=== PATIENT | male | born 1955 | race Hispanic/Latino ===

== ENCOUNTER 2018-12-14 22:43 | Emergency (ER) | payer MEDICAID, OTHER ==
[~2018-12-14 22:43] MED LIST: IRON SUPPLEMENT
== END 2018-12-14 23:26 | disposition home or self-care (01) ==
LOC: EDH 22:43
DX: T83.098A Other mechanical complication of other urinary catheter, initial encounter (principal); Y84.8 Other medical procedures as the cause of abnormal reaction of the patient, or of later complication, without mention of misadventure at the time of the procedure; Y92.89 Other specified places as the place of occurrence of the external cause
CPT/HCPCS: 51702

== ENCOUNTER 2019-03-23 15:05 | Emergency (ER) | payer SELFPAY ==
[2019-03-23 15:49] LABS: BASOPHILS % (AUTO) 0.8 % (0.0-5.0); EOSINOPHILS % (AUTO) 3.1 % (0.0-8.0); LYMPHOCYTES % (AUTO) 35.3 % (21.0-51.0); MEAN CORPUSCULAR HEMOGLOBIN 31.6 pg (27.0-33.0); MEAN CORPUSCULAR HGB CONC 34.8 g/dL (32.0-36.0); MEAN CORPUSCULAR VOLUME 90.6 fL (79-99); MONOCYTES % (AUTO) 7.1 % (3.0-13.0); NEUTROPHILS % (AUTO) 53.7 % (40.0-77.0); NUCLEATED RED BLOOD CELLS 0.1 % (0.0-0.19); PLATELET COUNT (AUTO) 177 K/uL (130-400); RED BLOOD CELL COUNT(AUTO) 4.52 MIL/uL (4.50-6.20); RED CELL DISTRIBUTION WIDTH 13.5 % (11.0-15.5); WHITE BLOOD COUNT (AUTO) 6.3 K/uL (4.8-10.8)
[2019-03-23 15:58] LABS: POTASSIUM 3.9 mmol/L (3.5-5.1)
[2019-03-23 16:01] LABS: APPEARANCE,URINE Clear (CLEAR); BILIRUBIN,URINE Negative (NEGATIVE); COLOR,URINE Yellow (YELLOW); GLUCOSE, URINE (UA) Negative (NEGATIVE); KETONES,URINE Negative (NEGATIVE); LEUKOCYTE ESTERASE ,URINE Moderate (NEGATIVE); NITRATE,URINE Negative (NEGATIVE); OCCULT BLOOD,URINE Moderate (NEGATIVE); PH,URINE 6.5 (5.0-8.0); PROTEIN,URINE Negative (NEGATIVE)
[2019-03-23 16:02] LABS: ALBUMIN 4.4 g/dL (3.5-5.0); BILIRUBIN,TOTAL 0.4 mg/dL (0.2-1.0); TOTAL PROTEIN, SERUM 7.8 g/dL (6.0-8.3)
[2019-03-23 16:07] LABS: INR 0.96 (0.85-1.15); PROTHROMBIN TIME 9.9 SEC (9.6-11.6)
[2019-03-23 16:42] LABS: BACTERIA,URINE Few /HPF (None Seen); MUCUS,URINE None Seen LPF (None Seen); SQUAMOUS EPITHELIAL CELL,UR 0-2 /HPF (0-2)
== END 2019-03-23 21:35 | disposition home or self-care (01) ==
LOC: EDH 15:05
DX: R31.9 Hematuria, unspecified (principal); C61 Malignant neoplasm of prostate
CPT/HCPCS: 36415; 51702; 80053; 81001; 85025; 85610; 85730

== ENCOUNTER 2019-03-24 20:44 | Emergency (ER) | payer SELFPAY ==
[2019-03-25] MEDS ORDERED: LEVO500T89 PO (23:04)
[2019-03-25] MEDS ORDERED: BICA50TA7 PO (23:04)
== END 2019-03-24 22:38 | disposition home or self-care (01) ==
LOC: EDH 20:44
DX: T83.098A Other mechanical complication of other urinary catheter, initial encounter (principal); R31.9 Hematuria, unspecified; N32.0 Bladder-neck obstruction; Y84.8 Other medical procedures as the cause of abnormal reaction of the patient, or of later complication, without mention of misadventure at the time of the procedure; Y92.89 Other specified places as the place of occurrence of the external cause
CPT/HCPCS: 99281

== ENCOUNTER 2019-03-25 16:36 | Inpatient (IN) | payer SELFPAY ==
[~2019-03-25] VITALS: Ht 165.1 cm; Wt 86.0 kg
[2019-03-25 18:35] LABS: BASOPHILS % (AUTO) 1.2 % (0.0-5.0); EOSINOPHILS % (AUTO) 3.5 % (0.0-8.0); HEMATOCRIT 36.8 % (42-54); LYMPHOCYTES % (AUTO) 24.5 % (21.0-51.0); MEAN CORPUSCULAR HEMOGLOBIN 32.5 pg (27.0-33.0); MEAN CORPUSCULAR HGB CONC 35.5 g/dL (32.0-36.0); MEAN CORPUSCULAR VOLUME 91.7 fL (79-99); NEUTROPHILS % (AUTO) 63.8 % (40.0-77.0); NUCLEATED RED BLOOD CELLS 0.1 % (0.0-0.19); PLATELET COUNT (AUTO) 167 K/uL (130-400); RED BLOOD CELL COUNT(AUTO) 4.01 MIL/uL (4.50-6.20); RED CELL DISTRIBUTION WIDTH 13.8 % (11.0-15.5); WHITE BLOOD COUNT (AUTO) 6.4 K/uL (4.8-10.8)
[2019-03-25 18:40] LABS: APPEARANCE,URINE TURBID (CLEAR); BILIRUBIN,URINE SMALL (NEGATIVE); COLOR,URINE RED (YELLOW); GLUCOSE, URINE (UA) NEGATIVE (NEGATIVE); KETONES,URINE NEGATIVE (NEGATIVE); LEUKOCYTE ESTERASE ,URINE TRACE (NEGATIVE); NITRATE,URINE NEGATIVE (NEGATIVE); OCCULT BLOOD,URINE LARGE (NEGATIVE); PROTEIN,URINE 100 mg/dL (NEGATIVE)
[2019-03-25 18:42] LABS: PARTIAL THROMBOPLASTIN TIME 24.6 SEC (26.3-35.5); PROTHROMBIN TIME 10.5 SEC (9.6-11.6)
[2019-03-25 18:45] LABS: CREATININE 1.1 mg/dL (0.5-1.5); POTASSIUM 3.6 mmol/L (3.5-5.1)
[2019-03-25 18:48] LABS: BACTERIA,URINE Rare /HPF (None Seen); RBC,URINE TNTC /HPF (0-1)
[2019-03-25 18:49] LABS: SQUAMOUS EPITHELIAL CELL,UR None Seen /HPF (0-2)
[2019-03-25 18:50] LABS: BILIRUBIN,TOTAL 0.4 mg/dL (0.2-1.0); TOTAL PROTEIN, SERUM 7.4 g/dL (6.0-8.3)
[2019-03-25] MEDS ORDERED: CEFTRIAXONE SODIUM 1 GM ONE (19:05)
[2019-03-25] MEDS ORDERED: SODIUM CHLORIDE 0.9% 1000ML 1,000 ML IV ONE (19:05)
[2019-03-25] MEDS ORDERED: ONDANSETRON HCL 4 MG/2 ML VIAL IVP PRN (21:15)
[2019-03-25] MEDS ORDERED: MORPHINE SULFATE 2 MG/ML 1ML SYG IVP PRN (21:15)
[2019-03-25 22:35] VITALS: BP 142/82
[2019-03-25] MEDS ORDERED: LEVO500T89 PO (23:04)
[2019-03-25] MEDS ORDERED: BICA50TA7 PO (23:04)
[2019-03-25] MEDS: CEFTRIAXONE SODIUM 1 GM IVP SCH (23:51)
[2019-03-25] MEDS: SODIUM CHLORIDE 0.9% 1000ML 1,000 ML IV SCH (23:55)
[2019-03-26 04:00] VITALS: BP 133/80
[2019-03-26 08:00] VITALS: BP 137/79
--- NOTE | 2019-03-26 11:30 | NUR ---
INITIAL MET W PATIENT, BROTHER / SISTER IN LAW AT BEDSIDE,OCTAVIO SISTER ON FACE SHEET, EITHER ONE WILL PROVIDE TRANSPOR HOME FACE SHEET VERIFIED PT LIVES ALONE, IS INDPE OF ADLS, DOES NOT USE DME AND DRIVES, HAS HX OF METASTATIC CANCER TO SPINE, TREATED W ORAL CHEMO X 2 YEARS, BOWEL AND BLADDER INCONTINENCE, AGARWAL CATH X 2 YEARS W RECURRING UTIS, NOW W HEMATURIA, ASKE PT ABOUT MEDICARE STATS HE CANNOT APPLY BECAUSE HE GETS [facility]SI BENEFITS. WILL FOLLOW WITH [facility], MAY BE ABLE TO GET PT BENEFITS. WILL FOLLOW UP AND GIVE PT THE PKT FOR [facility] Addendum: 03/27/19 at 1914 by MEJIA MURPHY RN Amended: Links added.
[2019-03-26 11:46] VITALS: BP 137/77
[2019-03-26] MEDS: SODIUM CHLORIDE 0.9% 1000ML 1,000 ML IV SCH ×2 (12:29→16:33)
[2019-03-26 16:14] VITALS: BP 129/77
[2019-03-26 19:48] VITALS: BP 135/75
[2019-03-26 23:41] VITALS: BP 129/79
[2019-03-27] VITALS (26 sets, daily range): BP systolic 120–146; BP diastolic 62–86
[2019-03-27] MEDS: SODIUM CHLORIDE 0.9% 1000ML 1,000 ML IV SCH ×2 (05:10→20:30)
--- NOTE | 2019-03-27 07:45 | NUR ---
NOTE AAOX3. DENIES PAIN OR DISCOMFORT. CONTINUES WITH CBI OF NS. OUTPUT LOOKS VERY CLEAR YELLOWISH. CBI RATE WAS DECREASED A BIT LAST NIGHT AND THIS AM DOES NOT NEED TO BE INCREASED CONTINUES TO BE CLEAR ALL NIGHT AND NO REPORTS OF CLOTS OR BLOCKAGE OF FLOW. STILL PENDING DR PILLAI TO COME IN. HE WAS CALLED DAY BEFORE YESTERDAY IN ER AND GAVE ORDERS BUT DID NOT COME TO SEE PATIENT THEN OR YESTERDAY. WE CALLED OFFICE YESTERDAY IN THE AFTERNOON AND MATT FROM HER STAFF ANSWERED, TOLD US HE IS AWARE OF CONSULT BUT WAS VERY BUSY AND WOULD COME TO SEE PATIENT WHEN EVER HE COULD. WILL CALL OFFICE AGAIN.
--- NOTE | 2019-03-27 12:00 | NUR ---
NOTE DR PILLAI CAME AND SPOKE TO PATIENT. HE WILL PROCEED WITH CYSTOSCOPY LATER THIS AFTERNOON. WILL ENETR AN ORDER TO CONSULT INSPECTOR E[employer]GL[employer] FRAMES FOR HEALTHCARE ASSISTANCE ORDERED PER DR PILLAI.
--- NOTE | 2019-03-27 15:00 | NUR ---
CM TO FOLLOW UP ON BENENFITS WAS ASKED BY DR PILLAI VIA PRIMARY RN TODAY TO CHECK ON BENEFITS FOR PT HE WILL BE NEEDING MORE INTERVENTION I THE FUTURE . Addendum: 03/27/19 at 1921 by MEJIA MURPHY RN CM Amended: Links added.
--- NOTE | 2019-03-27 18:00 | NUR ---
NOTE HAS BEEN OUT OF ROOM FOR CYSTOSCOPY.
[2019-03-27] MEDS ORDERED: LIDOCAINE PF 2% 5ML ABBOJECT ONE (18:19)
[2019-03-27] MEDS ORDERED: MIDAZOLAM HCL 1 MG/ML 2ML VIAL ONE (18:19)
[2019-03-27] MEDS ORDERED: PROPOFOL 10 MG/ML 20ML VIAL IV ONE (18:20)
[2019-03-27] MEDS ORDERED: FENTANYL CITRATE PF 50 MCG/1 ML 2ML VIAL ONE (18:20)
[2019-03-27] MEDS ORDERED: CEFTRIAXONE SODIUM 1 GM IVP ONE (18:33)
[2019-03-27] MEDS ORDERED: ONDANSETRON HCL 4 MG/2 ML VIAL ONE (18:42)
[2019-03-27] MEDS: CEFTRIAXONE SODIUM 1 GM IVP SCH (20:21)
[2019-03-28] MEDS: SODIUM CHLORIDE 0.9% 1000ML 1,000 ML IV SCH ×2 (00:35→09:00)
[2019-03-28 00:55] VITALS: BP 131/74
[2019-03-28 01:55] VITALS: BP 126/69
[2019-03-28 02:55] VITALS: BP 137/87
--- NOTE | 2019-03-28 07:10 | NUR ---
NOTE SLEEPING, EASILY AROUSABLE. ORIENTEDX2. NO COMPLAINS OF PAIN NO SOB NOTED OR REPORTED. S/P CYSTOSCOPY YESTERDAY. HE NO LONGER HAS CBI JUST THE F/C. URINE CLEAR, NO BLOOD OR CLOTS NOTED. THERE IS NOTES FROM DR PILLAI AND RECOMMENDATIONS. HE MAY BE DISCHARGED FROM HIS STANDPOINT. WE WILL WAIT FOR DR VO TO ROUND AND SEE WHAT THE PLAN WILL BE.
[2019-03-28 08:00] VITALS: BP 131/84
[2019-03-28] MEDS ORDERED: ONDANSETRON HCL 4 MG/2 ML VIAL IVP PRN (08:00)
[2019-03-28 12:00] VITALS: BP 130/82
--- NOTE | 2019-03-28 15:15 | NUR ---
DISCHARGE PATIENT GIVEN DISCHARGE INSTRUCTIONS VIA TEACH BACK. 20G PIV TO RF DISCONTINUED, TIP INTACT. PATIENT TO FOLLOW UP WITH DR. VO ON 04/01/19 AT 1000. FOLLOW UP WITH DR. PILLAI NEEDED. CONTINUE WITH AGARWAL CATHETER. REPORT ANY SIGNS AND SYMPTOMS OF INFECTION TO DR. VO OR SEEK EMERGENCY MEDICAL ATTENTION. PATIENT STABLE AT THIS TIME. PATIENT WHEELED TO LOBBY BY VARGAS CHÁVEZ.
== END 2019-03-28 15:50 | disposition home or self-care (01) | DRG 669 ==
LOC: EDH 16:36 → EDHIP 16:37 → OBSVTOIN 16:37 → 4CH 22:35
PROVIDERS: ADMIT Internal Medicine Hematology & Oncology; ATTEND Internal Medicine Hematology & Oncology
PROC: 0TBB8ZX Excision of Bladder, Via Natural or Artificial Opening Endoscopic, Diagnostic (ICD-10-PCS; principal; 2019-03-27 18:20)
DX: N30.91 Cystitis, unspecified with hematuria (principal); C79.9 Secondary malignant neoplasm of unspecified site; C61 Malignant neoplasm of prostate; R63.4 Abnormal weight loss; Z68.31 Body mass index [BMI] 31.0-31.9, adult
CPT/HCPCS: 36415; 80053; 81001; 84153; 85025; 85610; 85730; 87040; 87077; 87088; 87186; 88305; A4344; G0378; J0696; J2001; J2250; J2405; J2704; J3010; J7030; J7120

== ENCOUNTER 2020-05-01 10:49 | Emergency (ER) | payer OTHER, SELFPAY ==
[~2020-05-01 10:49] MED LIST changes: +BICA50TA7 PO; -IRON SUPPLEMENT; +LEVO500T89 PO
[2020-05-01 11:27] LABS: BASOPHILS % (AUTO) 0.3 % (0.0-5.0); EOSINOPHILS % (AUTO) 0.1 % (0.0-8.0); HEMATOCRIT 40.6 % (42-54); LYMPHOCYTES % (AUTO) 9.1 % (21.0-51.0); MEAN CORPUSCULAR HEMOGLOBIN 31.6 pg (27.0-33.0); MEAN CORPUSCULAR VOLUME 90.2 fL (79-99); MONOCYTES % (AUTO) 5.4 % (3.0-13.0); NEUTROPHILS % (AUTO) 84.7 % (40.0-77.0); PLATELET COUNT (AUTO) 185 K/uL (130-400); RED CELL DISTRIBUTION WIDTH 12.5 % (11.0-15.5); WHITE BLOOD COUNT (AUTO) 13.1 K/uL (4.8-10.8)
[2020-05-01 11:39] LABS: CREATININE 1.1 mg/dL (0.5-1.5); POTASSIUM 3.8 mmol/L (3.5-5.1)
[2020-05-01 11:43] LABS: ALBUMIN 4.5 g/dL (3.5-5.0); BILIRUBIN,TOTAL 0.6 mg/dL (0.2-1.0)
[2020-05-01 11:54] LABS: INR 0.94 (0.85-1.15); PARTIAL THROMBOPLASTIN TIME 25.1 SEC (26.3-35.5); PROTHROMBIN TIME 10.2 SEC (9.6-11.6)
[2020-05-01] MEDS ORDERED: IOHEXOL-350 75 ML VIAL IV ONE (11:57)
[2020-05-01] MEDS ORDERED: MORPHINE SULFATE 2 MG/ML 1ML SYG ONE (12:19)
[2020-05-01] MEDS ORDERED: ONDANSETRON HCL 4 MG/2 ML VIAL ONE (12:20)
[2020-05-01] MEDS ORDERED: SODIUM CHLORIDE 0.9% 1000ML 1,000 ML IV ONE (12:20)
[2020-05-01 12:24] LABS: APPEARANCE,URINE Clear (CLEAR); BILIRUBIN,URINE Negative (NEGATIVE); COLOR,URINE Yellow (YELLOW); GLUCOSE, URINE (UA) Negative (NEGATIVE); KETONES,URINE Negative (NEGATIVE); LEUKOCYTE ESTERASE ,URINE Negative (NEGATIVE); NITRATE,URINE Negative (NEGATIVE); OCCULT BLOOD,URINE Trace (NEGATIVE); PH,URINE 7.5 (5.0-8.0); PROTEIN,URINE Negative (NEGATIVE)
[2020-05-01 12:33] LABS: BACTERIA,URINE None Seen /HPF (None Seen); RBC,URINE 0-1 /HPF (0-1); SQUAMOUS EPITHELIAL CELL,UR 0-2 /HPF (0-2); WBC,URINE None Seen /HPF (0-1)
[2020-05-01] MEDS ORDERED: ZOSYN 3.375GM+NS 50ML 50 ML IV ONE (13:02)
== END 2020-05-01 16:28 | disposition short-term general hospital (02) ==
LOC: EDH 10:49
DX: K35.80 Unspecified acute appendicitis (principal); E86.0 Dehydration; Z20.828 Contact with and (suspected) exposure to other viral communicable diseases
CPT/HCPCS: 36415; 71045; 74177; 80053; 81001; 82150; 82550; 83690; 84484; 85025; 85610; 85730; 87426; 93005; 96361; 96365; 96366; 96375; 99285; J2405; J2543; J7030; Q9967; U0003

== ENCOUNTER 2020-09-12 17:46 | Emergency (ER) | payer OTHER ==
[2020-09-12] MEDS ORDERED: CEFTRIAXONE SODIUM 1 GM ONE (18:21)
[2020-09-12] MEDS ORDERED: LIDOCAINE HCL-MPF 1% 2ML VIAL ONE (18:21)
[2020-09-12 18:32] LABS: BILIRUBIN,URINE Negative (NEGATIVE); COLOR,URINE Orange (YELLOW); GLUCOSE, URINE (UA) Negative (NEGATIVE); KETONES,URINE Negative (NEGATIVE); LEUKOCYTE ESTERASE ,URINE Trace (NEGATIVE); NITRATE,URINE Negative (NEGATIVE); OCCULT BLOOD,URINE Large (NEGATIVE); PH,URINE 5.5 (5.0-8.0); PROTEIN,URINE Trace mg/dL (NEGATIVE); UROBILINOGEN,URINE 0.2 mg/dL (0.2-1.0)
[2020-09-12 18:33] LABS: APPEARANCE,URINE HAZY (CLEAR)
[2020-09-12 19:05] LABS: BACTERIA,URINE Rare /HPF (None Seen); SQUAMOUS EPITHELIAL CELL,UR Rare /HPF (0-2)
== END 2020-09-12 19:18 | disposition home or self-care (01) ==
LOC: EDH 17:46
DX: N39.0 Urinary tract infection, site not specified (principal); M54.5 Low back pain
CPT/HCPCS: 81001; 96372; 99283; J0696; J3490